=== PATIENT | female | born 1960 | race Caucasian/White ===

== ENCOUNTER → 2020-06-29 | Outpatient (CLI) | payer BC | LOC: KOH-I 11:21 | DX: M79.605 Pain in left leg (principal); E78.5 Hyperlipidemia, unspecified; R60.0 Localized edema | CPT/HCPCS: 93971 ==

== ENCOUNTER → 2020-07-05 | Outpatient (CLI) | payer BC | LOC: EXRD 15:29 | DX: I73.9 Peripheral vascular disease, unspecified (principal); R00.0 Tachycardia, unspecified; M79.605 Pain in left leg | CPT/HCPCS: 93922; 93926 ==

== ENCOUNTER → 2020-10-27 | Outpatient (CLI) | payer BC | LOC: KOH-I 16:48 | DX: R07.9 Chest pain, unspecified (principal) | CPT/HCPCS: 71046 ==

== ENCOUNTER → 2020-11-18 | Outpatient (CLI) | payer BC | LOC: CT 13:22 → EDBD 14:00 → CT 14:00 | DX: I70.213 Atherosclerosis of native arteries of extremities with intermittent claudication, bilateral legs (principal); R60.9 Edema, unspecified; I70.1 Atherosclerosis of renal artery; K76.0 Fatty (change of) liver, not elsewhere classified; I77.1 Stricture of artery; Z90.49 Acquired absence of other specified parts of digestive tract | CPT/HCPCS: 36415; 75635; 82565; Q9967 ==

== ENCOUNTER 2020-11-27 10:59 | Emergency (ER) | payer BC ==
[2020-11-27 12:13] LABS: HEMOGLOBIN 12.1 gm/dl (12.3-15.3); RED BLOOD COUNT 3.93 M/UL (4.00-5.10); WHITE BLOOD COUNT 7.6 K/UL (4.5-11.0)
[2020-11-27 12:35] LABS: BUN/CREATININE RATIO 17 (0-10)
== END 2020-11-27 14:07 | disposition home or self-care (01) ==
LOC: ER1 10:59
PROVIDERS: Emergency Medicine
DX: I99.8 Other disorder of circulatory system (principal); L03.116 Cellulitis of left lower limb; E78.5 Hyperlipidemia, unspecified; I10 Essential (primary) hypertension; D64.9 Anemia, unspecified; E11.51 Type 2 diabetes mellitus with diabetic peripheral angiopathy without gangrene
CPT/HCPCS: 80053; 82550; 82553; 83874; 84484; 85025; 85610; 85730; 87040; 93005; 96374; 99283; J1335

== ENCOUNTER 2021-02-09 13:45 | Emergency (ER) | payer BC ==
[~2021-02-09] VITALS: Ht 162.6 cm; Wt 95.3 kg
== END 2021-02-09 16:50 | disposition home or self-care (01) ==
LOC: ER1 13:45
DX: U07.1 COVID-19 (principal); E11.9 Type 2 diabetes mellitus without complications; Z23 Encounter for immunization; I10 Essential (primary) hypertension; E87.5 Hyperkalemia; Z88.0 Allergy status to penicillin; Z88.1 Allergy status to other antibiotic agents
CPT/HCPCS: 99283; M0243

== ENCOUNTER → 2021-03-24 | Outpatient (CLI) | payer BC | LOC: KOH-I 10:20 | DX: N95.0 Postmenopausal bleeding (principal) | CPT/HCPCS: 76856 ==

== ENCOUNTER → 2021-04-08 | Outpatient (CLI) | payer BC | LOC: CT 08:40 | DX: I70.213 Atherosclerosis of native arteries of extremities with intermittent claudication, bilateral legs (principal); M79.606 Pain in leg, unspecified; M89.9 Disorder of bone, unspecified; N83.9 Noninflammatory disorder of ovary, fallopian tube and broad ligament, unspecified | CPT/HCPCS: 36415; 75635; 82565; Q9967 ==

== ENCOUNTER → 2021-06-10 | Outpatient (CLI) | payer BC | LOC: CT 10:37 | DX: I70.212 Atherosclerosis of native arteries of extremities with intermittent claudication, left leg (principal); I70.201 Unspecified atherosclerosis of native arteries of extremities, right leg; R60.0 Localized edema; N83.9 Noninflammatory disorder of ovary, fallopian tube and broad ligament, unspecified; K55.1 Chronic vascular disorders of intestine | CPT/HCPCS: 36415; 75635; 82565; Q9967 ==

== ENCOUNTER → 2021-08-04 | Outpatient (CLI) | payer BC | LOC: US 09:23 | DX: N83.201 Unspecified ovarian cyst, right side (principal) | CPT/HCPCS: 76856 ==

== ENCOUNTER → 2021-11-11 | Outpatient (CLI) | payer BC | LOC: KOH-I 16:12 | DX: M51.16 Intervertebral disc disorders with radiculopathy, lumbar region (principal); M47.26 Other spondylosis with radiculopathy, lumbar region | CPT/HCPCS: 72100 ==